=== PATIENT | female | born 1975 | race Caucasian/White ===

== ENCOUNTER 2018-07-27 11:08 | Emergency (ER) | payer OTHER ==
[~2018-07-27 11:08] MED LIST: CYCLOBENZAPRINE5 M2 PO; IBUPROFEN800 M1 PO
[2018-07-27 11:18] VITALS: BP 122/88
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
--- NOTE | 2018-07-27 13:16 | ULTRASOUND REPORT ---
EXAMINATION: US TRIPLEX LOWER EXTREMITY, LEFT CLINICAL INFORMATION: Left leg pain. COMPARISON: None. TECHNIQUE: Color-flow triplex imaging with spectral analysis and compression Doppler were performed on the left lower extremity. FINDINGS: Respiratory variation, normal compression and augmented flow are noted throughout the lower extremity. The visualized common femoral vein, superficial femoral vein, profunda femoral vein, popliteal vein and midcalf peroneal and posterior tibial venous segments show no evidence of deep venous thrombosis. There are no focal fluid collections. IMPRESSION: 1. Normal triplex scan without evidence of deep venous thrombosis involving the left lower extremity. 2. There are no focal fluid collections.
[2018-07-27] MEDS ORDERED: VICODIN 5-3001 EACH PO (13:55)
== END 2018-07-27 14:08 ==
LOC: ERH 11:08
DX: K45.8 Other specified abdominal hernia without obstruction or gangrene (principal); M54.32 Sciatica, left side; M79.604 Pain in right leg; R20.0 Anesthesia of skin